=== PATIENT | male | born 1960 | race Caucasian/White ===

== ENCOUNTER 2017-01-19 11:39 | Inpatient (IN) | payer BC ==
[2017-01-19] VITALS (240 sets, daily range): BP systolic 99–112; BP diastolic 68–82; PULSE 182–184; TEMP 97.7–98.1; O2SAT 65–100
[~2017-01-19] VITALS: Ht 182.9 cm; Wt 85.5 kg
[2017-01-19 12:14] LABS: HEMATOCRIT 41.1 % (42.0-52.0); HEMOGLOBIN 14.2 g/dl (13.5-18.0); MEAN CELL VOLUME 89 fl (80.0-100.0); MEAN CORPUSCULAR HEMOGLOBIN 31 pg (27.0-31.0); MEAN CORPUSCULAR HGB CONC 35 g/dl (33.0-37.0); MEAN PLATELET VOLUME 12.2 fl (7.4-10.4); PLATELET COUNT 154 K/mm3 (130-400); RED BLOOD COUNT 4.64 M/mm3 (4.20-5.60); REDCELL DISTRIBUTION WIDTH-CV 20.3 % (11.5-14.5); WHITE BLOOD COUNT 13.8 K/mm3 (4.8-10.8)
[2017-01-19 12:16] LABS: ADD PATHOLOGY DIFF REVIEW NO
[2017-01-19 12:28] LABS: ADJUSTED CALCIUM 8.9 mg/dL (8.4-10.2); ALBUMIN 2.9 gm/dL (3.5-5.0); BILIRUBIN,TOTAL 4.5 mg/dL (0.0-1.0); CREATININE, serum 1.84 mg/dL (0.66-1.25); POTASSIUM 3.7 mmol/L (3.4-5.0)
[2017-01-19] MEDS ORDERED: MIRALAX PA17 GM/Dose PO (12:36)
[2017-01-19] MEDS ORDERED: NATURAL SENNA8.6 MG PO (12:36)
[2017-01-19] MEDS ORDERED: LASIX 40MG TABL40 MG PO (12:39)
[2017-01-19 12:42] LABS: ANISOCYTOSIS 3+; BAND 20 % (0-10); NEUTROPHILS 63 % (42.0-75.2); PLATELET ESTIMATE NORMAL (NORMAL); TOTAL CELLS COUNTED 100
[2017-01-19 12:43] LABS: BURR CELLS 2+; HYPOCHROMIA 1+
[2017-01-19 14:50] LABS: PH 5 (5-8); SQUAMOUS EPITHELIAL None Seen /hpf; URINE APPEARANCE Hazy; URINE BACTERIA None Seen /hpf; URINE BILIRUBIN Negative (NEGATIVE); URINE BLOOD Negative (NEGATIVE); URINE COLOR Amber; URINE GLUCOSE Negative (NEGATIVE); URINE KETONE Negative (NEGATIVE); URINE RBC 0-2 /hpf
[2017-01-19 20:42] LABS: MAGNESIUM 1.9 mg/dL (1.6-2.3)
[2017-01-20] VITALS (1042 sets, daily range): BP systolic 99–144; BP diastolic 75–91; PULSE 96–169; TEMP 97.4–98.7; O2SAT 65–100
[2017-01-20 06:39] LABS: BASO # 0.1 (0.0-0.2); BASO % 0.6 % (0.0-2.0); EOS % 0.5 % (0-4.0); GRAN # 7.3 (1.4-6.5); GRAN % 83.8 % (42.2-75.2); HEMATOCRIT 41.9 % (42.0-52.0); HEMOGLOBIN 14.2 g/dl (13.5-18.0); LYMPH # 0.4 (1.2-3.4); LYMPH % 4.2 % (20.0-51.0); MEAN CELL VOLUME 90 fl (80.0-100.0); MEAN CORPUSCULAR HEMOGLOBIN 31 pg (27.0-31.0); MEAN CORPUSCULAR HGB CONC 34 g/dl (33.0-37.0); MEAN PLATELET VOLUME 12.7 fl (7.4-10.4); MONO # 0.9 (0.1-0.6); MONO % 10.3 % (1.7-9.3); PLATELET COUNT 98 K/mm3 (130-400); RED BLOOD COUNT 4.66 M/mm3 (4.20-5.60); REDCELL DISTRIBUTION WIDTH-CV 20.4 % (11.5-14.5); WHITE BLOOD COUNT 8.7 K/mm3 (4.8-10.8)
[2017-01-20 06:57] LABS: ADJUSTED CALCIUM 8.7 mg/dL (8.4-10.2); ALBUMIN 2.4 gm/dL (3.5-5.0); BILIRUBIN,TOTAL 4.1 mg/dL (0.0-1.0); CALCIUM 7.4 mg/dL (8.4-10.2); CREATININE, serum 1.31 mg/dL (0.66-1.25); POTASSIUM 3.7 mmol/L (3.4-5.0); TOTAL PROTEIN 5.3 gm/dL (6.4-8.2)
[2017-01-21] VITALS (7 sets, daily range): BP systolic 115–148; BP diastolic 62–93; PULSE 98–109; TEMP 96.2–97.8
[2017-01-21 07:38] LABS: HEMATOCRIT 45.5 % (42.0-52.0); HEMOGLOBIN 14.7 g/dl (13.5-18.0); MEAN CELL VOLUME 93 fl (80.0-100.0); MEAN CORPUSCULAR HEMOGLOBIN 30 pg (27.0-31.0); MEAN CORPUSCULAR HGB CONC 32 g/dl (33.0-37.0); MEAN PLATELET VOLUME 11.8 fl (7.4-10.4); PLATELET COUNT 91 K/mm3 (130-400); RED BLOOD COUNT 4.87 M/mm3 (4.20-5.60); REDCELL DISTRIBUTION WIDTH-CV 20.8 % (11.5-14.5)
[2017-01-21 07:55] LABS: ALBUMIN 2.5 gm/dL (3.5-5.0); CALCIUM 7.8 mg/dL (8.4-10.2); CREATININE, serum 1.16 mg/dL (0.66-1.25); MAGNESIUM 1.7 mg/dL (1.6-2.3); POTASSIUM 3.7 mmol/L (3.4-5.0); TOTAL PROTEIN 5.6 gm/dL (6.4-8.2)
[2017-01-21 08:16] LABS: ADD PATHOLOGY DIFF REVIEW NO
[2017-01-21 10:17] LABS: BAND 34 % (0-10); MYELOCYTE 1 % (0-0); NEUTROPHILS 50 % (42.0-75.2); TOTAL CELLS COUNTED 100
[2017-01-21 10:18] LABS: ANISOCYTOSIS 3+; PLATELET ESTIMATE DECREASED (NORMAL)
[2017-01-22 03:53] VITALS: BP 134/87; PULSE 106; TEMP 97.9
[2017-01-22 07:43] LABS: HEMATOCRIT 45.8 % (42.0-52.0); HEMOGLOBIN 14.8 g/dl (13.5-18.0); MEAN CELL VOLUME 92 fl (80.0-100.0); MEAN CORPUSCULAR HEMOGLOBIN 30 pg (27.0-31.0); MEAN CORPUSCULAR HGB CONC 32 g/dl (33.0-37.0); MEAN PLATELET VOLUME 12.5 fl (7.4-10.4); PLATELET COUNT 78 K/mm3 (130-400); RED BLOOD COUNT 4.96 M/mm3 (4.20-5.60); REDCELL DISTRIBUTION WIDTH-CV 21.2 % (11.5-14.5); WHITE BLOOD COUNT 12.7 K/mm3 (4.8-10.8)
[2017-01-22 07:46] LABS: ADD PATHOLOGY DIFF REVIEW NO
[2017-01-22 08:00] LABS: ADJUSTED CALCIUM 9.3 mg/dL (8.4-10.2); ALBUMIN 2.4 gm/dL (3.5-5.0); BILIRUBIN,TOTAL 3.9 mg/dL (0.0-1.0); CREATININE, serum 1.02 mg/dL (0.66-1.25); MAGNESIUM 1.7 mg/dL (1.6-2.3); POTASSIUM 3.4 mmol/L (3.4-5.0); TOTAL PROTEIN 5.6 gm/dL (6.4-8.2)
[2017-01-22 08:15] VITALS: BP 150/71; PULSE 60
[2017-01-22 08:43] LABS: ANISOCYTOSIS 3+; BAND 10 % (0-10); NEUTROPHILS 76 % (42.0-75.2); PLATELET ESTIMATE NORMAL (NORMAL); TOTAL CELLS COUNTED 100
[2017-01-22 08:44] LABS: TEAR DROP CELLS 1+
[2017-01-22 11:34] VITALS: BP 121/68; PULSE 46; TEMP 97.4
[2017-01-22] MEDS ORDERED: DIFLUCAN 100MG100 MG PO (12:27)
[2017-01-22] MEDS ORDERED: PACERONE200 MG PO (12:27)
[2017-01-22] MEDS ORDERED: ZOFRAN ODT4 MG PO (12:30)
[2017-01-22] MEDS ORDERED: LORAINT PO (12:30)
[2017-01-22] MEDS ORDERED: FENTANYL 25 MCG TD (12:30)
[2017-01-22] MEDS ORDERED: ROXANOL 20MG20 MG/ML SL (12:30)
[2017-01-22] MEDS ORDERED: FENTANYL 75MCG TD (12:43)
[2017-01-22] MEDS ORDERED: MAGIC MOUTH PO (12:48)
== END 2017-01-22 13:33 | disposition hospice, home (50) | DRG 388 ==
LOC: COL.ER 11:39 → ICU 14:47 → MEDICAL 14:47 → ICU 14:47 → MEDICAL 01-20 20:45
PROVIDERS: Emergency Medicine; Internal Medicine
PROC: 0D9670Z Drainage of Stomach with Drainage Device, Via Natural or Artificial Opening (ICD-10-PCS; principal; 2017-01-19)
DX: K56.69 Other intestinal obstruction (principal); R57.1 Hypovolemic shock; E43 Unspecified severe protein-calorie malnutrition; C34.12 Malignant neoplasm of upper lobe, left bronchus or lung; R18.0 Malignant ascites; N17.9 Acute kidney failure, unspecified; B37.81 Candidal esophagitis; B37.0 Candidal stomatitis; I42.9 Cardiomyopathy, unspecified; C78.7 Secondary malignant neoplasm of liver and intrahepatic bile duct; I48.92 Unspecified atrial flutter; Z66 Do not resuscitate; Z51.5 Encounter for palliative care; I48.91 Unspecified atrial fibrillation; J44.9 Chronic obstructive pulmonary disease, unspecified; N18.9 Chronic kidney disease, unspecified
CPT/HCPCS: 99233-AI; 99239; C9113; J0153; J0282; J1160; J1170; J1450; J2543; J7030; J7050; J7060